=== PATIENT | male | born 1950 | race Caucasian/White ===

== ENCOUNTER 2023-01-05 09:50 | Outpatient (CLI) | payer MEDICARE, SELFPAY | END 2023-01-05 09:51 | disposition home or self-care (01) | LOC: ANHAUDIO 09:51 | PROVIDERS: PCP Physician Assistant; Visit Provider Physician Assistant | DX: Z01.10 Encounter for examination of ears and hearing without abnormal findings (principal) | CPT/HCPCS: 99199 ==

== ENCOUNTER 2023-02-24 09:41 | Outpatient (CLI) | payer MEDICARE, SELFPAY | END 2023-02-24 09:42 | disposition home or self-care (01) | LOC: ANHAUDIO 09:42 | PROVIDERS: PCP Physician Assistant; Visit Provider Physician Assistant | DX: Z01.10 Encounter for examination of ears and hearing without abnormal findings (principal); H90.3 Sensorineural hearing loss, bilateral | CPT/HCPCS: 92557; 92567 ==